=== PATIENT | male | born 1970 | race Caucasian/White ===

== ENCOUNTER 2016-12-21 07:31 | Day surgery (SDC) | payer BC ==
[~2016-12-21] VITALS: Ht 182.9 cm; Wt 85.2 kg
[~2016-12-21 07:31] MED LIST: AFRIN,GENASAL D15 ML BOTH NARES; ASPIRIN81 M1 PO; AVAPRO300 MG PO; COREG CR40 MG PO; COZAAR25 MG PO; FLONASE16 GM NS; LIPITOR20 MG PO; LOVAZA1 GM PO; VITAMIN D2000 UNI1 PO
[2016-12-21 08:06] VITALS: BP 133/74
[2016-12-21] MEDS ORDERED: PERCOCET 5/31 TABLET PO (12:12)
[2016-12-21] MEDS ORDERED: COLACE100 MG PO (12:12)
[2016-12-21 14:20] VITALS: BP 157/87
[2016-12-21 15:30] VITALS: BP 125/71
[2016-12-21 16:15] VITALS: BP 121/71
== END 2016-12-21 16:25 | disposition home or self-care (01) ==
LOC: SDC 07:31
DX: K42.9 Umbilical hernia without obstruction or gangrene (principal); E78.5 Hyperlipidemia, unspecified; I10 Essential (primary) hypertension; K58.9 Irritable bowel syndrome, unspecified; I25.10 Atherosclerotic heart disease of native coronary artery without angina pectoris
CPT/HCPCS: C1781; J0330; J0690; J1100; J1170; J2250; J2405; J2710; J3010